=== PATIENT | male | born 1935 | race Caucasian/White ===

== ENCOUNTER 2024-12-17 16:24 | Emergency (ER) | payer OTHER, SELFPAY ==
--- NOTE | ~2024-12-17 | CT_ITS ---
CLINICAL HISTORY: Weakness, slurred speech, rule out stroke, bleed CT head without contrast Comparison: No prior brain imaging is available for review in PACS at this time. Findings: No acute intracranial hemorrhage. No midline shift or hydrocephalus . no large arterial territorial infarction by CT. No acute skull fracture. Bilateral nasal bone fractures are old. Mucosal thickening and remodeling of the paranasal sinuses with air. 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 Mild volume loss is generalized. Vascular calcifications are noted-fluid levels of the maxillary sinuses, left larger than right. Previous cataract procedure changes noted. Imaged mastoid air cells are well aerated IMPRESSION: 1. No acute intracranial hemorrhage. 2. No arterial territorial infarction by CT. This document has been electronically signed by: Alex Holley MD on 12/17/2024 20:12:25
--- NOTE | ~2024-12-17 | XR_ITS ---
CLINICAL HISTORY: Weakness, rule out pneumonia 1 view chest x-ray Comparison: None available Findings: Mild cardiomegaly accentuated by AP technique. Cardiac device with leads noted. Small pleural effusions with mild bibasilar atelectasis and/or consolidation. No pneumothorax. Mild emphysematous changes. Degenerative changes include the imaged shoulders IMPRESSION: 1. Small pleural effusions with mild bibasilar atelectasis/consolidation 2. Mild cardiomegaly This document has been electronically signed by: Alex Holley MD on 12/17/2024 19:08:41
[2024-12-17 16:32] VITALS: BP 100/59; PULSE 84; O2SAT 98
[2024-12-17 16:40] VITALS: BP 102/57; PULSE 73; RESP 18; TEMP 36.4; O2SAT 96; BMI 19.6
[2024-12-17 17:30] LABS: MANUAL DIFF FLAG NO
[2024-12-17 17:31] LABS: Basophils Percent Auto 0.2 % (0-2); Eosinophils Absolute Auto 0.1 X10*3/uL (0.0-0.4); Eosinophils Percent Auto 1.1 % (0-4); Hematocrit 31.7 % (42.0-52.0); Imm Gran Abs Auto 0.05 X10*3/uL (0.00-0.03); Imm Gran Pct Auto 0.5 % (0.0-0.4); Lymphocytes Absolute Auto 0.9 X10*3/uL (1.2-4.9); Lymphocytes Percent Auto 8.6 % (20-40); Mean Corpuscular HGB Conc 31.5 g/dl (31.0-36.0); Mean Corpuscular Hemoglobin 25.6 pg (27.0-33.0); Mean Corpuscular Volume 81.1 fL (80.0-98.0); Mean Platelet Volume 12.5 fL (9.4-12.4); Monocytes Absolute Auto 1.2 X10*3/uL (0.1-1.2); Monocytes Percent Auto 11.6 % (2-11); Neutrophils Absolute Auto 8.3 x10*3/uL (2.0-8.3); Platelet Count 198 X10*3/uL (160-400); Red Blood Count 3.91 X10*6/uL (4.60-5.80); Red Cell Distribution Width 16.4 % (11.0-16.0); White Blood Count 10.6 X10*3/uL (4.8-10.8)
--- NOTE | 2024-12-17 17:47 | PC.NURSE ---
Pt had one small bowel movement on bed miller, cleaned.
[2024-12-17 17:48] LABS: Alanine Aminotransferase 58 U/L (0-40); Albumin Level 2.5 g/dL (3.5-5.0); Alkaline Phosphatase 94 U/L (39-117); Anion Gap 12 (12-20); Aspartate Amino Transferase 75 U/L (5-37); Bilirubin Total 0.5 mg/dL (0.0-1.0); Blood Urea Nitrogen 81 mg/dL (9-16); Carbon Dioxide 21 mmol/L (22-29); Chloride 105 mmol/L (96-108); Creatinine Clr Calc Pharmacy 21.8; Estimated Glomerular Filt Rate 29; Glucose Random 219 mg/dL (60-115); Sodium 134 mmol/L (135-145); Total Protein 7.4 g/dL (6.5-8.0)
--- NOTE | 2024-12-17 17:48 | PC.NURSE ---
Pt presents to ED via EMS from SNF for possible changes in speech sometime in last 24 hours, ?slurred/ more slow than normal. Staff reports he has only been there for 2 days so they are not fully sure of his baseline. Pt is alert but confused (dementia), breathing even and unlabored with +cough, 2L O2 NC at baseline for COPD. skin pale. Per EMS, staff reports pt is CDIFF +. Pt denies pain. Speech is slow, pt is generally weak with no obvious drift, facial droop or unilateral weakness.
[2024-12-17 17:52] LABS: Troponin-I High Sensitivity 53.8 ng/L (<3.5-35.0)
--- NOTE | 2024-12-17 17:56 | ECG_ITS ---
Test Reason : WEAKNESS Blood Pressure : */* mmHG Vent. Rate : 70 BPM Atrial Rate : 94 BPM P-R Int : * ms QRS Dur : 188 ms QT Int : 524 ms P-R-T Axes : * -74 92 degrees QTcB Int : 565 ms Ventricular-paced rhythm Abnormal ECG No previous ECGs available Referred By: Avelino Villafana Electronically Signed By: DUNIA MCNAIR MD
--- NOTE | 2024-12-17 17:56 | ED_ITS ---
HPI - Weakness General Chief complaint: Weakness Stated complaint: slurred speech, lkwt yesterday afternoon Time Seen by Provider: 12/17/24 17:45 Source: patient and RN notes reviewed Mode of arrival: EMS Limitations: other (Dementia, lacks insight as to why he was here) History of Present Illness ED Provider: Dr. Avelino Villafana HPI Narrative: 89-year-old male history of status post TAVR, diabetes mellitus, coronary artery disease status post stent,, HFrEF, hypertension, biventricular ICD, ischemic cardiomyopathy, left bundle-branch block, paroxysmal atrial fibrillation on warfarin, being treated for C diff currently on vancomycin orally who was sent into the emergency department from his nursing facility, [facility] for evaluation of slurred speech since yesterday increased confusion above his baseline dementia with no other complaints. Patient he was oriented to person, he was pleasant cooperative, does answer questions but lacks insight as to why he was here. I did speak to the patient's on the phone. She was unable to come to the emergency department to see the patient's since she was difficulty ambulating due to an amputation of her foot. She states that the patient was admitted for 1 week at [facility] and discharged yesterday to [facility]. The following was obtained from discharge summary dated 12/16/2024. Patient was admitted from 12/08/2024 until 12/16/2024. Patient presented to [facility] for weakness times 2-3 days, lower extremity edema and shortness of breath. Patient had a leukocytosis, elevated BNP. Chest x-ray revealed no CHF. CT abdomen showed eccentric edema, small ascites. While in the hospital, he developed diarrhea and had a positive C diff test and was started on oral vancomycin to complete a 10-14 day course. Patient's BUN and creatinine was 80 and 2.10 on 12/16/2024. H&H was 10.1 and 33 0.0 on 12/15/2024 Discharge diagnoses were as follows: C diff colitis, acute HFrEF, MERCEDES, CKD, AFib, CAD, type 2 diabetes, Related Data Allergies Allergy/AdvReac Type Severity Reaction Status Date / Time codeine Allergy Unknown Verified 12/17/24 16:43 [facility] Past Medical History [facility] Narrative: social history: Patient was living at home with his . His anticipates caring for the patient at home after he was rehab stay. Social History Social History Smoked in Last 30 Days: No Use of substances other than those prescribed or required for medical reasons: No Advance Directives: No Advance Directives Information Provided: No Physical Exam 2 Vital Signs: Vital Signs: Last Vital Signs Temp 98.4 F 12/18/24 01:40 Pulse 76 12/18/24 01:40 Resp 18 12/18/24 01:40 BP 99/68 12/18/24 01:40 Pulse Ox 97 12/18/24 01:40 O2 Del Method Nasal Cannula 12/18/24 01:40 O2 Flow Rate 2 12/18/24 01:40 BMI result Body Mass Index 19.6 Vital signs revealed a low blood pressure of 102/57 otherwise unremarkable Exam: General: Awake, alert oriented to person, lacks insight as to why he is here, in no distress, strong ketotic odor to his breath Head: Normocephalic, atraumatic EENT: PERRL, Lids normal, sclera normal, conjunctiva normal, nose normal , ears normal, throat without erythema or exudates Neck: Supple, no adenopathy Lung: breath sounds symmetric, no wheezing, rales or rhonchi Chest: symmetric movement, nontender Heart: regular rate and rhythm, normal S1, S2 no murmurs or rubs Abdomen: soft, non-tender, nondistended, normal bowel sounds Rectal: Loose anal sphincter, stool was dark brown in very loose, the patient had a diarrheal stool after the rectal exam which was sent for C diff. Back: no vertebral tenderness, no CVAT Extremities: no deformities, moves all extremities symmetrically Neuro: Awake, alert, oriented, normal speech, cranial nerves intact, moves all extremities symmetrically Psych: Pleasant, cooperative Medications Administered Discontinued Medications Generic Name Dose Route Start Last Admin Trade Name Freq PRN Reason Stop Dose Admin Sodium Chloride 1,971 mls @ 1,971 mls/hr 12/17/24 17:58 12/17/24 20:20 Ns 30 ml/kg infuse over 1 hr (1971 ml) 12/17/24 18:57 Infused IV Infusion .Q1H STA Medical Decision Making Medical Decision Making MDM Narrative: 89-year-old male history of status post TAVR, diabetes mellitus, coronary artery disease status post stent,, HFrEF, hypertension, biventricular ICD, ischemic cardiomyopathy, left bundle-branch block, paroxysmal atrial fibrillation on warfarin, being treated for C diff currently on vancomycin orally who was sent into the emergency department [facility] for evaluation of slurred speech since yesterday increased confusion above his baseline dementia with no other complaints. Patient was admitted from 12/08/2024 until 12/16/2024 at [facility] for C difficile colitis, acute HFrEF, MERCEDES, CKD, atrial fibrillation. He was discharged on oral vancomycin for 10-14 days. Patient was oriented to person but lacks insight as to why he was here in the emergency department. Rectal exam did reveal loose brown stool. Differential diagnosis: ?Includes but is not limited to C difficile colitis, pneumonia, stroke, volume depletion, dehydration, electrolyte abnormalities, anemia 22:02 The patient was given a 30 cc/kilogram normal saline bolus at 1900 cc. my independent interpretation of the patient's laboratory evaluation was as follows: WBC was normal 10,600. Normocytic anemia with an H&H of 10.8 and 31.2. Glucose elevated 143. Coags were unremarkable. BUN and creatinine were elevated 81 and 2.17 however this is similar to his discharge lab from [facility], consistent with chronic kidney disease. Magnesium was elevated at 3.6. AST and ALT with IV 75 and 58. Troponin was elevated 53.8 repeat 4 hours troponin was unchanged at 57.5 COVID-19, influenza and RSV were negative. Urinalysis was negative. Occult stool was negative. C diff was negative. Repeat BMP after completing fluid bolus did not reveal any significant change in the patient's BUN and creatinine suggesting he was values are consistent with his chronic kidney disease. CT of the head was unremarkable. Chest x-ray revealed no pneumonia. At this time, I do not think that the patient has an acute infectious process or stroke as the cause of his change in mental status. According to nursing staff, the patient had 2 small loose stool since being in the emergency department. This suggests that his C diff colitis is improved. I did discuss these findings with the patient's , Cathy and she was aware that the patient was being sent back to the nursing facility for further rehab and treatment Admission/Observation Consideration of admission/observation: Escalation of care including admission/observation considered (Yes) Lab Data [facility] Lab Attestation statement: I reviewed the patient's lab results. 12/17/24 17:11 12/17/24 21:30 Labs: Lab Results 12/17/24 12/17/24 12/17/24 Range/Units 17:11 18:24 18:26 WBC 10.6 (4.8-10.8) X10*3/uL RBC 3.91 L (4.60-5.80) X10*6/uL Hgb 10.0 L (14.0-18.0) g/dl Hct 31.7 L (42.0-52.0) % MCV 81.1 (80.0-98.0) fL MCH 25.6 L (27.0-33.0) pg MCHC 31.5 (31.0-36.0) g/dl RDW 16.4 H (11.0-16.0) % Plt Count 198 (160-400) X10*3/uL MPV 12.5 H (9.4-12.4) fL Immature Gran % (Auto) 0.5 H (0.0-0.4) % Neut % (Auto) 78.0 H (45-73) % Lymph % (Auto) 8.6 L (20-40) % [place] % (Auto) 11.6 H (2-11) % Eos % (Auto) 1.1 (0-4) % Baso % (Auto) 0.2 (0-2) % Lymph # (Auto) 0.9 L (1.2-4.9) X10*3/uL [place] # (Auto) 1.2 (0.1-1.2) X10*3/uL Eos # (Auto) 0.1 (0.0-0.4) X10*3/uL Baso # (Auto) 0.0 (0.0-0.2) X10*3/uL Abs Immat Gran (auto) 0.05 H (0.00-0.03) X10*3/uL Absolute Neuts (auto) 8.3 (2.0-8.3) x10*3/uL Absolute Nucleated RBC 0.000 (0.0-0.012) X10*3/uL Nucleated RBC % (auto) 0.0 (0.0-0.2) /100WBC PT 14.5 H (10.9-12.4) SEC INR 1.2 H (0.9-1.1) APTT 38.2 H (26.0-36.8) SEC Sodium 134 L (135-145) mmol/L Potassium 4.0 (3.3-5.1) mmol/L Chloride 105 (96-108) mmol/L Carbon Dioxide 21 L (22-29) mmol/L Anion Gap 12 (12-20) BUN 81 H (9-16) mg/dL Creatinine 2.17 H (0.5-1.4) mg/dL Estim Creat Clear Calc 21.8 Estimated GFR 29 Random Glucose 219 H (60-115) mg/dL Lactic Acid 1.4 (0.5-2.0) mmol/L Calcium 8.0 L (8.4-10.2) mg/dL Magnesium 3.6 H* (1.6-2.6) mg/dL Total Bilirubin 0.5 (0.0-1.0) mg/dL AST 75 H (5-37) U/L ALT 58 H (0-40) U/L Alkaline Phosphatase 94 (39-117) U/L Troponin I High Sens 53.8 H (<3.5-35.0) ng/L Total Protein 7.4 (6.5-8.0) g/dL Albumin 2.5 L (3.5-5.0) g/dL Lipase 108 H (8-78) U/L Beta-Hydroxybutyrate 0.43 H (0.02-0.27) mmol/L Urine Color Dark Yellow Urine Appearance Clear Urine pH 5.0 (5.0-9.0) Ur Specific [place] 1.015 (1.005-1.025) Urine Protein Trace (Neg-Trace) mg/dL Urine Glucose (UA) Negative (Negative) mg/dL Urine Ketones Negative (Negative) mg/dL Urine Blood Negative (Negative) Urine Nitrite Negative (Negative) Ur Leukocyte Esterase Negative (Negative) Stool Occult Blood NEGATIVE (NEGATIVE) C. difficile Tox B Gene NEGATIVE (Negative) Influenza Type A (PCR) NEGATIVE (Negative) Influenza Type B (PCR) NEGATIVE (Negative) RSV RNA Qual (PCR) NEGATIVE (Negative) SARS-CoV-2 RNA (RT-PCR) NEGATIVE (Negative) Blood Type A Positive Antibody Screen NEGATIVE 12/17/24 Range/Units 21:30 WBC (4.8-10.8) X10*3/uL RBC (4.60-5.80) X10*6/uL Hgb (14.0-18.0) g/dl Hct (42.0-52.0) % MCV (80.0-98.0) fL MCH (27.0-33.0) pg MCHC (31.0-36.0) g/dl RDW (11.0-16.0) % Plt Count (160-400) X10*3/uL MPV (9.4-12.4) fL Immature Gran % (Auto) (0.0-0.4) % Neut % (Auto) (45-73) % Lymph % (Auto) (20-40) % [place] % (Auto) (2-11) % Eos % (Auto) (0-4) % Baso % (Auto) (0-2) % Lymph # (Auto) (1.2-4.9) X10*3/uL [place] # (Auto) (0.1-1.2) X10*3/uL Eos # (Auto) (0.0-0.4) X10*3/uL Baso # (Auto) (0.0-0.2) X10*3/uL Abs Immat Gran (auto) (0.00-0.03) X10*3/uL Absolute Neuts (auto) (2.0-8.3) x10*3/uL Absolute Nucleated RBC (0.0-0.012) X10*3/uL Nucleated RBC % (auto) (0.0-0.2) /100WBC PT (10.9-12.4) SEC INR (0.9-1.1) APTT (26.0-36.8) SEC Sodium 136 (135-145) mmol/L Potassium 3.8 (3.3-5.1) mmol/L Chloride 109 H (96-108) mmol/L Carbon Dioxide 20 L (22-29) mmol/L Anion Gap 11 L (12-20) BUN 77 H (9-16) mg/dL Creatinine 2.01 H (0.5-1.4) mg/dL Estim Creat Clear Calc 23.6 Estimated GFR 32 Random Glucose 168 H (60-115) mg/dL Lactic Acid (0.5-2.0) mmol/L Calcium 7.7 L (8.4-10.2) mg/dL Magnesium (1.6-2.6) mg/dL Total Bilirubin (0.0-1.0) mg/dL AST (5-37) U/L ALT (0-40) U/L Alkaline Phosphatase (39-117) U/L Troponin I High Sens 57.5 H (<3.5-35.0) ng/L Total Protein (6.5-8.0) g/dL Albumin (3.5-5.0) g/dL Lipase (8-78) U/L Beta-Hydroxybutyrate (0.02-0.27) mmol/L Urine Color Urine Appearance Urine pH (5.0-9.0) Ur Specific [place] (1.005-1.025) Urine Protein (Neg-Trace) mg/dL Urine Glucose (UA) (Negative) mg/dL Urine Ketones (Negative) mg/dL Urine Blood (Negative) Urine Nitrite (Negative) Ur Leukocyte Esterase (Negative) Stool Occult Blood (NEGATIVE) C. difficile Tox B Gene (Negative) Influenza Type A (PCR) (Negative) Influenza Type B (PCR) (Negative) RSV RNA Qual (PCR) (Negative) SARS-CoV-2 RNA (RT-PCR) (Negative) Blood Type Antibody Screen Independent Interpretation I performed an independent interpretation of an: EKG Interpretation: Patient was 12 EKG revealed a ventricular paced rhythm at 70 Radiology Impression Discussion of test interpretation with radiology: I have reviewed the radiologist's reading. Radiologist Impression: 1 view chest x-ray Comparison: None available Findings: Mild cardiomegaly accentuated by AP technique. Cardiac device with leads noted. Small pleural effusions with mild bibasilar atelectasis and/or consolidation. No pneumothorax. Mild emphysematous changes. Degenerative changes include the imaged shoulders IMPRESSION: 1. Small pleural effusions with mild bibasilar atelectasis/consolidation 2. Mild cardiomegaly This document has been electronically signed by: Alex Holley MD on 12/17/2024 19:08:41 CT head without contrast Comparison: No prior brain imaging is available for review in PACS at this time. Findings: No acute intracranial hemorrhage. No midline shift or hydrocephalus . no large arterial territorial infarction by CT. No acute skull fracture. Bilateral nasal bone fractures are old. Mucosal thickening and remodeling of the paranasal sinuses with air. 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 Mild volume loss is generalized. Vascular calcifications are noted-fluid levels of the maxillary sinuses, left larger than right. Previous cataract procedure changes noted. Imaged mastoid air cells are well aerated IMPRESSION: 1. No acute intracranial hemorrhage. 2. No arterial territorial infarction by CT. This document has been electronically signed by: Alex Holley MD on 12/17/2024 20:12:25 Independent Historian Clinical information obtained from an independent historian. History obtained from or confirmed by: Spouse External Record Review External record reviewed: Inpatient record (Discharge summary from [facility], [place]) Chronic Conditions Patient?s care impacted by: Other (Dementia, chronic kidney disease) Critical Care Time Critical Care Time Critical Care Time: Yes Total Critical Care Time: 35 Attestation: Critical Care: The patient was critically ill with a high probability of imminent or life threatening deterioration. I spent greater than 30 minutes of discontinuous time evaluating the patient,delivering critical care at the bedside, discussing and evaluating pertinent data with consultants. Critical care time does not include time spent performing separately billable procedures or teaching. Total time spent performing critical care was 35 minutes. Discharge Plan Discharge Clinical Impression: Dementia, Acute dehydration Patient Disposition: [facility] Transfer Details: [facility], [facility] ambulance Additional Instructions: Your blood work was consistent with your baseline chronic kidney disease. The CT scan of your head revealed no bleeding in the brain or stroke. Your chest x-ray revealed no pneumonia. Your urine was negative for an infection. Your COVID-19, influenza and RSV tests were negative. Your C difficile test was negative and you only had 2 small diarrheal stools here in the emergency department. This suggests that you are getting better from your C difficile but you need to complete the 10-14 day course of oral vancomycin as prescribed by [facility]. You were treated with 2 L of normal saline IV for possible dehydration. I did discuss your workup with your and she was aware that you are going back to your care facility Continue taking medications as prescribed by your providers. Follow-up with your doctor in 2 days. Please return to the emergency department if your symptoms get worse or if you develop any symptoms that are concerning to you. Interventions: ED Discharge Assessment Last Done: 12/18/24 01:40 Discharge Date/Time: 12/18/24 01:41 Print Language: Khmer
[2024-12-17 18:08] LABS: Influenza A PCR NEGATIVE (Negative); Influenza B PCR NEGATIVE (Negative); Resp Syncy Virus RNA Qual PCR NEGATIVE (Negative); SARS COV2 PCR INHOUSE NEGATIVE (Negative)
[2024-12-17 18:31] VITALS: BP 100/59; PULSE 70; RESP 19; O2SAT 100
[2024-12-17 18:35] LABS: OBS Int Ctl Valid YES; OBS1 NEGATIVE (NEGATIVE)
[2024-12-17 18:39] LABS: Appearance Urine Clear; Color Urine Dark Yellow; Glucose Urine UA Negative (Negative); Leukocyte Esterase Urine Negative (Negative); Nitrite Urine Negative (Negative); Specific Gravity - Urine 1.015 (1.005-1.025); Urine Blood Negative (Negative); Urine Ketones Negative (Negative); Urine Protein Trace mg/dL (Neg-Trace)
[2024-12-17 18:40] LABS: INTERNATIONAL NORM RATIO 1.2 (0.9-1.1); Prothrombin Time 14.5 SEC (10.9-12.4)
[2024-12-17 18:42] LABS: Partial Thromboplastin Time 38.2 SEC (26.0-36.8)
[2024-12-17 18:51] LABS: Lactic Acid 1.4 mmol/L (0.5-2.0)
[2024-12-17 18:55] LABS: Lipase 108 U/L (8-78); Magnesium 3.6 mg/dL (1.6-2.6)
[2024-12-17 19:00] LABS: Beta-Hydroxybutyrate 0.43 mmol/L (0.02-0.27)
[2024-12-17 19:25] LABS: CDiff Gene PCR NEGATIVE (Negative)
[2024-12-17 21:47] LABS: Anion Gap 11 (12-20); Blood Urea Nitrogen 77 mg/dL (9-16); Calcium 7.7 mg/dL (8.4-10.2); Carbon Dioxide 20 mmol/L (22-29); Chloride 109 mmol/L (96-108); Creatinine Clr Calc Pharmacy 23.6; Estimated Glomerular Filt Rate 32; Glucose Random 168 mg/dL (60-115); Potassium 3.8 mmol/L (3.3-5.1); Sodium 136 mmol/L (135-145)
[2024-12-17 22:27] LABS: Troponin-I High Sensitivity 57.5 ng/L (<3.5-35.0)
[2024-12-18 00:08] VITALS: BP 101/62; PULSE 68; RESP 19; TEMP 36.4; O2SAT 99
[2024-12-18 01:40] VITALS: BP 99/68; PULSE 76; RESP 18; TEMP 36.9; O2SAT 97
== END 2024-12-18 01:41 | disposition skilled nursing facility (03) ==
PROVIDERS: Emergency Provider Emergency Medicine Emergency Medical Services
DX: R53.1 Weakness (principal); F03.90 Unspecified dementia, unspecified severity, without behavioral disturbance, psychotic disturbance, mood disturbance, and anxiety; E86.0 Dehydration; E11.22 Type 2 diabetes mellitus with diabetic chronic kidney disease; I13.0 Hypertensive heart and chronic kidney disease with heart failure and stage 1 through stage 4 chronic kidney disease, or unspecified chronic kidney disease; N18.9 Chronic kidney disease, unspecified; I50.21 Acute systolic (congestive) heart failure; I48.0 Paroxysmal atrial fibrillation; Z03.818 Encounter for observation for suspected exposure to other biological agents ruled out; Z79.01 Long term (current) use of anticoagulants
CPT/HCPCS: 0241U; 36415; 70450; 71045; 80048; 80053; 81003; 82010; 82272; 83605; 83690; 83735; 84484; 85025; 85610; 85730; 86850; 86900; 86901; 87040; 87493; 93005; 96360; 96361; 99284; 99285

== ENCOUNTER → 2024-12-17 17:56 | Outpatient (BNV) | payer OTHER, SELFPAY | PROVIDERS: Emergency Provider Emergency Medicine Emergency Medical Services; Visit Provider Internal Medicine Cardiovascular Disease | DX: R94.31 Abnormal electrocardiogram [ECG] [EKG] (principal); Z95.0 Presence of cardiac pacemaker | CPT/HCPCS: 93010 ==

== ENCOUNTER → 2024-12-17 17:58 | Outpatient (BNV) | payer OTHER, SELFPAY | PROVIDERS: Emergency Provider Emergency Medicine Emergency Medical Services; Visit Provider Radiology Neuroradiology | DX: R53.1 Weakness (principal); R47.81 Slurred speech; J90 Pleural effusion, not elsewhere classified | CPT/HCPCS: 70450; 71045 ==